=== PATIENT | female | born 2000 | race African-American/Black ===

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

== ENCOUNTER 2019-10-27 22:12 | Emergency (ER) | payer OTHER ==
[2019-10-27 22:16] VITALS: BP 118/78; PULSE 120; TEMP 101.1; BMI 26.6
[2019-10-27] MEDS ORDERED: ACETAMINOPHEN 325 MG TABLET (FP) PO ONE (23:11)
[2019-10-27] MEDS ORDERED: ACETAMINOPHEN 325 MG TABLET (FP) ONE (23:19)
[2019-10-28] MEDS ORDERED: IBUPROFEN 400 MG TABLET (FP) PO ONE ×2 (00:17→00:28)
[2019-10-28 00:43] LABS: EPI CELLS 4.9 /HPF (0-5/HPF); HYALINE CASTS 8 /lpf (0-8); URINE APPEARANCE CLOUDY; URINE BACTERIA 302.7 /hpf (NEGATIVE); URINE BILIRUBIN NEGATIVE (NEGATIVE); URINE COLOR YELLOW; URINE GLUCOSE (UA) NEGATIVE (NEGATIVE); URINE KETONE NEGATIVE (NEGATIVE); URINE LEUK ESTERASE 1+ (NEGATIVE); URINE NITRITE NEGATIVE (NEGATIVE); URINE PROTEIN NEGATIVE (NEGATIVE); URINE RBC 1 /hpf (0-4); URINE WBC 23 /hpf (0-5)
--- NOTE | 2019-10-28 01:01 | PDOC ---
Documentation entered by Thom Castro SCRIBE, acting as scribe for Quentin Islas MD. Quentin Islas MD: This documentation has been prepared by the Matthew christianson Nirvannie, SCRIBE, under my direction and personally reviewed by me in its entirety. I confirm that the documentation accurately reflects all work, treatment, procedures, and medical decision making performed by me. History of Present Illness - General Chief Complaint: Cold Symptoms Stated Complaint: COLD SYMPTOMS Time Seen by Provider: 10/27/19 23:13 History Source: Patient Exam Limitations: No Limitations - History of Present Illness Initial Comments: 10/28/19 00:17 The patient is a 19 year old female with no significant past medical history, who presents to the emergency department with 2 hours of fevers (Tmax 101.7), chills, sore throat, and generalized malaise. She notes upon getting up she feels both lightheaded as if she is going to pass out and dizzy as the room is spinning. As per patient, her boyfriend was recently in the ED earlier today with similar symptoms and discharged on Tamiflu. She denies recent nausea, vomiting, diarrhea or constipation. She denies recent dysuria, frequency, urgency or hematuria. She denies recent chest pain or shortness of breath. Allergies: Amoxicillin, Lactose Primary Care Physician: Dr. Cruz Past History - Past Medical History Allergies/Adverse Reactions: Allergies Allergy/AdvReac Type Severity Reaction Status Date / Time amoxicillin Allergy Verified 10/27/19 22:17 lactose AdvReac Verified 10/27/19 22:17 Home Medications: Ambulatory Orders Albuterol Sulfate Inhaler - [Ventolin HFA Inhaler -] 1 - 2 inh PO Q4H #1 inhaler 03/01/18 COPD: No - Immunization History Immunization Up to Date: Yes - Psycho Social/Smoking Cessation Hx Smoking History: Never smoked Have you smoked in the past 12 months: No Information on smoking cessation initiated: No Hx Alcohol Use: No Drug/Substance Use Hx: No Substance Use Type: None Review of Systems - Review of Systems Able to Perform ROS?: Yes Comments:: 10/28/19 00:18 Constitutional - Fever, Chills, HEENT: no reported vision changes, sore throat Respiratory: no reported cough, sob, hemoptysis Cardiac: no reported chest pain, palpitations, light headedness, leg swelling Abd/GI: no reported abd pain, nausea, vomiting, blood per rectum, melena, diarrhea : no reported dysuria, frequency, discharge Musculskelatal - no reported back pain, joint swelling skin - no reported bruising, erythema, rash neurological: no reported headache, numbness, focal weakness, tingling, ataxia, hematologic: no reported easy bruising, easy bleeding *Physical Exam - Vital Signs Last Vital Signs Temp Pulse Resp BP Pulse Ox 101.1 F H 120 H 19 118/78 100 10/27/19 22:14 10/27/19 22:14 10/27/19 22:14 10/27/19 22:14 10/27/19 22:14 - Physical Exam 10/28/19 00:24 GENERAL: The patient is awake, alert, and fully oriented, Nontoxic - in no acute distress. HEAD: Normocephalic, atraumatic. EYES: extraocular movements intact, sclera anicteric, conjunctiva clear. ENT: Normal voice, Moist mucous membranes. Posterior pharynx nonerythematous, without any exudates NECK: Normal range of motion, supple LUNGS: Breath sounds equal, clear to auscultation bilaterally. No wheezes, no rhonchi, no rales. HEART: Tachycardic, normal S1 and S2 without murmur, rub or gallop. ABDOMEN: Soft, nontender, No guarding, no rebound. No CVA tenderness EXTREMITIES: Normal range of motion, no edema. NEUROLOGICAL: No facial assymetry, Normal speech, PSYCH: Normal mood, normal affect. SKIN: Hot to touch, Dry, normal turgor, ED Treatment Course - Medications Given in the ED: ED Medications Discontinued Medications Generic Name Dose Route Start Last Admin Trade Name Freq PRN Reason Stop Dose Admin Acetaminophen 650 mg 10/27/19 23:11 10/27/19 23:24 Tylenol - PO 10/27/19 23:12 650 mg ONCE ONE Administration Medical Decision Making - Medical Decision Making 10/27/19 23:29 19y F prsents with fever, chills, throat pain, fatigue, malaise. Boyfriend had similar sypmoms and was seen in the ED earlier today and was started on tamiflu. 10/28/19 00:24 Suspect flulike illness, as the patient has no other risk factors will defer Tamiflu treatment. Supportive management including Motrin, Tylenol, fluids. Will discharge with PMD follow-up 10/28/19 00:55 The patient's fever improved and heart rate also improved current heart rate is 86. The patient is UA noted for some bacteria however it was not a true clean-catch (confirmed w patient) as the patient does not have any urinary symptoms will defer treatment of UTI. Return precautions were discussed I discussed the physical exam findings, ancillary test results and final diagnoses with the patient. I answered all of the patient's questions. The patient was satisfied with the care received and felt comfortable with the discharge plan and treatment plan. The patient will call their primary care physician within 24 hours to arrange follow-up and will return to the Emergency Department with any new, persistent or worsening symptoms. Discharge - Discharge Information Problems reviewed: Yes Clinical Impression/Diagnosis: Flu-like symptoms Condition: Improved Disposition: HOME - Admission No - Follow up/Referral Referrals: Bishop Cruz MD [Primary Care Provider] - - Patient Discharge Instructions Patient Printed Discharge Instructions: DI for Viral Upper Respiratory Infection -- Adult Additional Instructions: Return to the emergency department immediately with ANY new, persistent or worsening symptoms including any worsening shortness of breath, persistent vomiting or any other concerns. Take Motrin and Tylenol as needed for fever control Make sure he stay well-hydrated You MUST call and follow up with your doctor tomorrow for further evaluation of your symptoms. Results were discussed with you. Please make sure your doctor reviews the results of your emergency evaluation. Your Emergency Department visit is not complete without a follow up with your doctor. Print Language: HONG KONGER - Post Discharge Activity
== END 2019-10-28 01:03 | disposition home or self-care (01) ==
LOC: JER 22:12
DX: J11.1 Influenza due to unidentified influenza virus with other respiratory manifestations (principal); Z88.0 Allergy status to penicillin; Z91.011 Allergy to milk products
CPT/HCPCS: 81003; 84703; 99282-25

== ENCOUNTER 2019-10-28 23:19 | Emergency (ER) | payer OTHER ==
[2019-10-28 23:27] VITALS: BP 122/59; PULSE 83; TEMP 98; BMI 26.6
[2019-10-28] MEDS ORDERED: ALBUTEROL SO4 2.5/IPRATROPIUM 0.5 INH SOL 3 ML VIAL.NEB. NEB ONE (23:39)
[2019-10-29] MEDS ORDERED: ALBUTEROL SO4 2.5/IPRATROPIUM 0.5 INH SOL 3 ML VIAL.NEB. NEB ONE ×2 (01:29→01:42)
[2019-10-29] MEDS ORDERED: predniSONE 20 MG TABLET (UD) PO ONE (01:29)
--- NOTE | 2019-10-29 01:34 | PDOC ---
Attending Attestation - Resident Resident Name: Gumaro Brandt - ED Attending Attestation I have performed the following: I have examined & evaluated the patient, The case was reviewed & discussed with the resident, I agree w/resident's findings & plan, Exceptions are as noted
[2019-10-29] MEDS ORDERED: predniSONE 20 MG TABLET (UD) ONE (01:41)
--- NOTE | 2019-10-29 02:42 | PDOC ---
History of Present Illness - General Chief Complaint: Shortness of Breath Stated Complaint: ASTHMA Time Seen by Provider: 10/29/19 01:22 History Source: Patient Exam Limitations: No Limitations - History of Present Illness Initial Comments: 10/29/19 02:36 Patient is 19F with history of asthma here today complaining of wheezing, cough , fever and shortness of breath for the past two days. Endorses positive sick contact in boyfriend who tested positive for the flu. Denies leg swelling, blood clots in past. LMP 2 months ago, tested negative two days ago here. Came into the ED initially for the fever two days ago, was negative then. Coming in today because of the shortness of breath. Past History - Past Medical History Allergies/Adverse Reactions: Allergies Allergy/AdvReac Type Severity Reaction Status Date / Time amoxicillin Allergy Verified 10/27/19 22:17 lactose AdvReac Verified 10/27/19 22:17 Home Medications: Ambulatory Orders Albuterol Sulfate Inhaler - [Ventolin HFA Inhaler -] 1 - 2 inh PO Q4H #1 inhaler 03/01/18 Albuterol Sulfate Inhaler - [Ventolin HFA Inhaler -] 1 - 2 inh PO Q4H #1 inhaler 10/29/19 Inhaler, Assist Devices [Space Chamber Plus] 1 each MC PRN #1 spacer 10/29/19 predniSONE [Deltasone -] 40 mg PO DAILY #4 tablet 10/29/19 Asthma: Yes COPD: No - Immunization History Immunization Up to Date: Yes - Psycho Social/Smoking Cessation Hx Smoking History: Never smoked Have you smoked in the past 12 months: No Hx Alcohol Use: No Drug/Substance Use Hx: No Substance Use Type: None Review of Systems - Review of Systems Able to Perform ROS?: Yes Comments:: 10/29/19 02:42 GENERAL/CONSTITUTIONAL: +fever +chills. No weakness. HEAD, EYES, EARS, NOSE AND THROAT: No change in vision. No sore throat. CARDIOVASCULAR: No chest pain +shortness of breath RESPIRATORY: +cough, +wheezing, or hemoptysis. GASTROINTESTINAL: No nausea, vomiting, diarrhea or constipation. GENITOURINARY: No dysuria, frequency, or change in urination. MUSCULOSKELETAL: No joint or muscle swelling or pain. No neck or back pain. SKIN: No rash NEUROLOGIC: No headache, vertigo, loss of consciousness, or change in strength/ sensation. ENDOCRINE: No increased thirst. No abnormal weight change HEMATOLOGIC/LYMPHATIC: No anemia, easy bleeding, or history of blood clots. ALLERGIC/IMMUNOLOGIC: No hives or skin allergy. *Physical Exam - Vital Signs Last Vital Signs Temp Pulse Resp BP Pulse Ox 98 F 83 19 122/59 L 99 10/28/19 23:24 10/28/19 23:24 10/28/19 23:24 10/28/19 23:24 10/28/19 23:44 - Physical Exam 10/29/19 02:43 GENERAL: Awake, alert, and fully oriented, in no acute distress HEAD: No signs of trauma, normocephalic, atraumatic EYES: PERRLA, EOMI, sclera anicteric, conjunctiva clear ENT: Auricles normal inspection, hearing grossly normal, nares patent, oropharynx clear without exudates. Moist mucosa NECK: Normal ROM, supple, no lymphadenopathy, JVD, or masses LUNGS: No distress, speaks full sentences, decreased breath sounds with wheezing HEART: Regular rate and rhythm, normal S1 and S2, no murmurs, rubs or gallops, peripheral pulses normal and equal bilaterally. ABDOMEN: Soft, nontender, normoactive bowel sounds. No guarding, no rebound. No masses EXTREMITIES: Normal inspection, Normal range of motion, no edema. No clubbing or cyanosis. NEUROLOGICAL: Cranial nerves II through XII grossly intact. Normal speech, normal gait, no focal sensorimotor deficits SKIN: Warm, Dry, normal turgor, no rashes or lesions noted. ED Treatment Course - Medications Given in the ED: ED Medications Discontinued Medications Generic Name Dose Route Start Last Admin Trade Name Freq PRN Reason Stop Dose Admin Albuterol/Ipratropium 3 amp 10/29/19 01:29 10/29/19 02:03 Duoneb - NEB 10/29/19 01:30 3 amp ONCE ONE Administration Prednisone 40 mg 10/29/19 01:29 10/29/19 02:03 Deltasone - PO 10/29/19 01:30 40 mg ONCE ONE Administration Medical Decision Making - Medical Decision Making 10/29/19 02:43 Patient is 19F here today with asthma exacerbation 2/2 viral illness. Afebrile. Improved after duonebs and prednisone. Lungs now clear. Patient stated she would not take tamiflu, so testing deferred. Given return precautions. Discharge - Discharge Information Problems reviewed: Yes Clinical Impression/Diagnosis: Asthma exacerbation Condition: Good Disposition: HOME - Admission No - Additional Discharge Information Prescriptions: Albuterol Sulfate Inhaler - [Ventolin HFA Inhaler -] 1 - 2 inh PO Q4H #1 inhaler Inhaler, Assist Devices [Space Chamber Plus] 1 each MC PRN #1 spacer predniSONE [Deltasone -] 40 mg PO DAILY #4 tablet - Follow up/Referral Referrals: Bishop Cruz MD [Primary Care Provider] - - Patient Discharge Instructions Patient Printed Discharge Instructions: DI for Asthma -- Adult Additional Instructions: Please follow up with your primary care doctor. Please return if you have any new, worsening or concerning symptoms. - Post Discharge Activity Work/Back to School Note: Back to Work
== END 2019-10-29 02:49 | disposition home or self-care (01) ==
LOC: JER 23:19
PROC: 3E0F7GC Introduction of Other Therapeutic Substance into Respiratory Tract, Via Natural or Artificial Opening (ICD-10-PCS; principal; 2019-10-28)
DX: J45.901 Unspecified asthma with (acute) exacerbation (principal)
CPT/HCPCS: 99281-25

== ENCOUNTER 2020-10-30 14:05 | Emergency (ER) | payer OTHER ==
[2020-10-30 14:31] VITALS: BP 117/64; PULSE 65; TEMP 65; BMI 25.2
== END 2020-10-30 15:40 | disposition home or self-care (01) ==
LOC: JER 14:05
DX: U07.1 COVID-19 (principal)
CPT/HCPCS: 99283-25; C9803; U0003

== ENCOUNTER 2021-10-20 09:58 | Emergency (ER) | payer OTHER ==
[2021-10-20 10:18] VITALS: BP 116/70; PULSE 76; TEMP 98.4; BMI 27.7
[2021-10-21 19:06] LABS: SARS-CoV-2 NAA Not Detected (Not Detected)
== END 2021-10-20 11:02 | disposition home or self-care (01) ==
LOC: JER 09:58
DX: Z11.52 Encounter for screening for COVID-19 (principal)
CPT/HCPCS: 99283-25; C9803; U0003; U0005

== ENCOUNTER 2023-03-01 14:55 | Emergency (ER) | payer OTHER ==
[2023-03-01 15:11] VITALS: BP 119/74; PULSE 66; RESP 18; TEMP 97.6; BMI 25.8
[2023-03-01] MEDS ORDERED: ONDANSETRON 4 MG/2 ML VIAL IVPUSH ONE (15:51)
[2023-03-01] MEDS ORDERED: FAMOTIDINE 20 MG/50 ML IVPB 20 MG/50 ML MG IVPB ONE ×2 (15:51→16:19)
[2023-03-01] MEDS ORDERED: SODIUM CHLORIDE 0.9% 500 ML INFUS.BAG IV ONE (15:51)
[2023-03-01] MEDS ORDERED: MAG HYDROX/AL HYDROX/SIMETH 30 ML UNIT-DOSE CUP PO ONE (15:51)
[2023-03-01] MEDS ORDERED: MAG HYDROX/AL HYDROX/SIMETH 30 ML UNIT-DOSE CUP ONE (16:18)
[2023-03-01] MEDS ORDERED: ONDANSETRON 4 MG/2 ML VIAL ONE (16:19)
[2023-03-01 16:56] LABS: BASO % 0.4 % (0-2.0); HEMOGLOBIN 12.4 GM/dL (10.7-15.3); LYMPH % 5.1 % (8-40); MCH 25.6 pg (25.7-33.7); MCHC 32.5 g/dl (32.0-36.0); MEAN CELL VOLUME 78.5 fl (80-96); MEAN PLT VOLUME 9.9 fl (7.5-11.1); MONO % 1.3 % (3.8-10.2); NEUT % 93.2 % (42.8-82.8); PLATELET COUNT 337 10^3/uL (134-434); RBC 4.84 M/mm3 (3.60-5.2); RDW 14.7 % (11.6-15.6); WHITE BLOOD COUNT 15.6 K/mm3 (4.0-10.0)
[2023-03-01 17:09] LABS: ALBUMIN 4.1 g/dl (3.4-5.0); BLOOD UREA NITROGEN 10.7 mg/dL (7-18); CALCIUM 9.2 mg/dL (8.5-10.1)
[2023-03-01 17:12] LABS: CREATININE 0.6 mg/dL (0.55-1.3)
[2023-03-01 17:12] LABS: EPI CELLS >36 /uL (0-25.1); HYALINE CASTS 2 /uL (0-3.1); PH,URINE 8.5 (5.0-8.0); URINE APPEARANCE CLEAR; URINE BACTERIA 626 /uL (0-1359); URINE BILIRUBIN NEGATIVE (NEGATIVE); URINE COLOR YELLOW; URINE GLUCOSE (UA) NEGATIVE (NEGATIVE); URINE KETONE 2+ (NEGATIVE); URINE LEUK ESTERASE NEGATIVE (NEGATIVE); URINE NITRITE NEGATIVE (NEGATIVE); URINE PROTEIN 1+ (NEGATIVE); URINE WBC 8 /uL (0-25.8)
[2023-03-01 17:14] LABS: BILIRUBIN,TOTAL 0.4 mg/dL (0.2-1); TOT PROT 8.2 g/dl (6.4-8.2)
[2023-03-01 17:21] LABS: URINE RBC 20.2 /uL (0-23.9)
[2023-03-01 17:30] LABS: ANISOCYTOSIS 1+; MACROCYTOSIS 0; OVALOCYTE 1+
== END 2023-03-01 17:46 | disposition home or self-care (01) ==
LOC: JER 14:55
PROC: 3E033GC Introduction of Other Therapeutic Substance into Peripheral Vein, Percutaneous Approach (ICD-10-PCS; principal; 2023-03-01)
PROC: 3E033GC Introduction of Other Therapeutic Substance into Peripheral Vein, Percutaneous Approach (ICD-10-PCS; 2023-03-01)
DX: R11.2 Nausea with vomiting, unspecified (principal); R10.13 Epigastric pain; R19.7 Diarrhea, unspecified
CPT/HCPCS: 36415; 80053; 81003; 83690; 84703; 85025; 87086; 99284-25